=== PATIENT | male | born 1980 | race African-American/Black ===

== ENCOUNTER 2017-07-07 18:27 | Emergency (ER) | payer OTHER ==
[~2017-07-07] VITALS: Ht 170.2 cm; Wt 93.0 kg
[2017-07-07 19:50] VITALS: BP 122/74
[2017-07-07] MEDS ORDERED: KEFLEX500 MG PO (19:50)
== END 2017-07-07 19:50 | disposition home or self-care (01) ==
LOC: ER 18:27
DX: S50.811A Abrasion of right forearm, initial encounter (principal); J45.909 Unspecified asthma, uncomplicated; Y04.0XXA Assault by unarmed brawl or fight, initial encounter; Y93.89 Activity, other specified; Y92.89 Other specified places as the place of occurrence of the external cause; Y99.8 Other external cause status